=== PATIENT | male | born 2000 | race Caucasian/White ===

== ENCOUNTER 2019-02-25 15:31 | Emergency (ER) | payer MEDICAID | END 2019-02-25 16:38 | disposition home or self-care (01) | LOC: FTE 15:31 | DX: S01.21XA Laceration without foreign body of nose, initial encounter (principal); X58.XXXA Exposure to other specified factors, initial encounter; Y92.322 Soccer field as the place of occurrence of the external cause | CPT/HCPCS: 12011; 99282-25 ==

== ENCOUNTER 2019-02-27 10:52 | Emergency (ER) | payer MEDICAID | END 2019-02-27 12:02 | disposition home or self-care (01) | LOC: E/R 10:52 | DX: Z48.01 Encounter for change or removal of surgical wound dressing (principal) | CPT/HCPCS: 99281; Z7502 ==